=== PATIENT | male | born 1990 | race Caucasian/White ===

== ENCOUNTER 2021-04-17 02:46 | Observation (INO) ==
[2021-04-17] MEDS ORDERED: DICYCLOMINE HCL 10 MG CAP PO ONE (03:03)
[2021-04-17] MEDS ORDERED: SODIUM CHLORIDE 0.9% 1000ML 1,000 ML IV ONE (03:03)
--- NOTE | 2021-04-17 03:07 | Emergency Department Note ---
Impression & Plan Hemorrhagic colitis ED Provider Note Name: ELISEO CROUCH Age: 30 Sex: M Arrives Via: Walk-In Informant: Patient, ED Provider: Mohan Huertas MD Chief Complaint: Blood stool Impression: Hemorrhagic Colitis Medical Decision Makin yr old male with history of narcolepsy arrives with severe bloody diarrhea. Diffuse TTP entire abdomen, though not hypotensive/tachy. Labs with OK Hgb but WBC elevated. Given IV fludis, pain medications. Rash right arm at IV site noted post IV dye and Morphine, unclear which as etiology though resolved with IV benadryl. CT reveals diffuse colitis. Given degree colitis and persistent bloody diarrhea while here hospitalist consulted for further management. Triage/Nursing Notes reviewed by Me Differentials:Diverticulosis, AVM, coagulopathy, colitis, inflammatory bowel disease, malignancy, Moni-Haque tear, esophagitis, peptic ulcer disease, variceal bleed, gastritis, epistaxis, fissure, hemorrhoids, as well as other pathologies. Vital Signs: reviewed and remarkable for no significant abnormalities Interventions: saline lock, bentyl po, morphine iv, zofran iv, benadyrl iv, nss bolus Labs:Reviewed and remarkable for wbc elevation Imaging:[facility] Radiologist interpretation reviewed by me: pancolitis Consults:Dr Lata Hare Hospitalist Plan: Disposition:Hospitalization. Condition: Good History of Present Illness:30 yr old male arrives for evaluation of abdominal cramping. Patient notes about 12 hours of abdominal cramping. Shortly after it started developed diarrhea. Initially watery, but over the last few hours grossly bloody stool. No fevers, chills, vomiting, syncope, back pain, sob, cp, leg swelling, bruising, rashes, nor other symptoms. No history of similar. He was at the [facility] all last week. No falls, trauma, nor injury other than hit his head last week. No headache nor neck pain. No medications prior to arrival. Nothing makes pain better nor worse. Pain comes in waves. ROS: See above HPI for pertinent positives & negatives. A total of 10 systems reviewed and were otherwise negative. 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 EYES: No scleral icterus, unremarkable pupils. ENT: Mucous membranes moist, no nasal congestion. NECK: No masses appreciated, nomeningismus, trachea is midline. RESPIRATORY: No dyspnea. Clear to auscultation and equal bilaterally. No wheeze, no rhonchi. CARDIOVASCULAR: Regular rate and rhythm.No murmurs, rubs, gallops appreciated. GASTROINTESTINAL: Abdomen soft, non-tender, no peritonitis.Bowel sounds positive.No masses appreciated. BACK: No midline tenderness, no CVA tenderness EXTREMITIES: Normal motion all extremities, no cyanosis, no edema. RECTAL: No tears nor hemorrhoids appreciated NEUROLOGIC: Alert and oriented, no acute motor or sensory deficits, no focal weakness, cranial nerves grossly intact. SKIN: No rash, no jaundice, no diaphoresis. 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 Beliefs That Will Affect Care: None Current Living Situation: Spouse Other Information That Helps Us Care for You: No Feels Safe at Home: Yes Safety Concerns: Feels Safe At This Time Assistive Devices: None Allergies Allergies Allergy/AdvReac Type Severity Reaction Status Date / Time morphine Allergy Mild Hives Verified 04/17/21 07:09 Home Meds Home Medications Medication Instructions Recorded Confirmed armodafinil 200 mg tablet 200 mg PO DAILY 04/17/21 04/17/21 Results & Data (ED) Vital Signs Vital Signs - 24 hr 04/17/21 02:49 Temperature 36.9 C Temperature Source Temporal Artery Scan Pulse Rate 62 Respiratory Rate 20 Blood Pressure 118/68 Blood Pressure Mean 84 Blood Pressure Position Sitting Pulse Oximetry 98 Oxygen Delivery Method Room Air Sepsis Recent Fever Within 48 Hours No Sepsis New/Unexplained Change in Mental Status No Sepsis Action Taken by Nursing No Action Required Laboratory Data Result diagrams: 04/17/21 11:52 04/17/21 02:55 Lab Results 04/17/21 04/17/21 04/17/21 Range/Units 02:55 02:55 03:47 WBC 15.62 H (4.8-10.8) K/uL RBC 4.82 (4.7-6.1) M/uL Hgb 15.3 (14.0-18.0) g/dL Hct 42.8 (42-52) % MCV 88.8 (80-100) fL MCH 31.7 (25-34) pg MCHC 35.7 (32-36) g/dL RDW Std Deviation 39.7 (36.4-46.3) fL RDW Coeff of Colton 12.5 (11.5-14.5) % Plt Count 234 (130-400) K/uL MPV 9.2 (7.4-10.4) fL Immature Gran % (Auto) 0.2 % Neut % (Auto) 82.5 % Lymph % (Auto) 8.6 % [place] % (Auto) 8.5 % Eos % (Auto) 0.1 % Baso % (Auto) 0.1 % Neut # (Auto) 12.88 H (1.4-6.5) K/uL Lymph # (Auto) 1.35 (1.2-3.4) K/uL [place] # (Auto) 1.33 H (0.11-0.59) K/uL Eos # (Auto) 0.02 (0-0.5) K/uL Baso # (Auto) 0.01 (0-0.2) K/uL Immature Gran # (Auto) 0.03 H (0.00-0.02) K/uL Sodium 138 (136-145) mmol/L Potassium 3.6 (3.5-5.1) mmol/L Chloride 109 H (98-107) mmol/L Carbon Dioxide 24 (21-32) mmol/L Anion Gap 5.0 (3-11) BUN 12 (7-18) mg/dl Creatinine 1.12 (0.6-1.4) mg/dl Est Cr Clr Drug Dosing 100.5 ml/min Est GFR ( Amer) 102.3 ml/min Est GFR (Non-Af Amer) 88.3 ml/min BUN/Creatinine Ratio 10.9 (10-20) Glucose 127 H (70-99) mg/dl Estimat Average Glucose mg/dl Hemoglobin A1c (4.5-5.6) % Lactate (0.4-2.0) mmol/L Calcium 8.9 (8.5-10.1) mg/dl Magnesium (1.8-2.4) mg/dl Total Bilirubin 1.0 (0.2-1) mg/dl Direct Bilirubin 0.2 (0-0.2) mg/dl AST 13 L (15-37) U/L ALT 26 (12-78) U/L Alkaline Phosphatase 90 (45-117) U/L Total Protein 7.6 (6.4-8.2) gm/dl Albumin 4.0 (3.4-5.0) gm/dl Lipase 73 (73-393) U/L TSH (0.300-4.500) uIu/ml Free T4 (0.8-1.6) ng/dl Stl C. diff Tox B Gene Negative Cdiff Gene (Neg) COVID-19 Eval Order SARS-CoV-2 (PCR) (Negative) Blood Type Antibody Screen 04/17/21 04/17/21 04/17/21 Range/Units 03:53 03:53 06:20 WBC (4.8-10.8) K/uL RBC (4.7-6.1) M/uL Hgb (14.0-18.0) g/dL Hct (42-52) % MCV (80-100) fL MCH (25-34) pg MCHC (32-36) g/dL RDW Std Deviation (36.4-46.3) fL RDW Coeff of Colton (11.5-14.5) % Plt Count (130-400) K/uL MPV (7.4-10.4) fL Immature Gran % (Auto) % Neut % (Auto) % Lymph % (Auto) % [place] % (Auto) % Eos % (Auto) % Baso % (Auto) % Neut # (Auto) (1.4-6.5) K/uL Lymph # (Auto) (1.2-3.4) K/uL [place] # (Auto) (0.11-0.59) K/uL Eos # (Auto) (0-0.5) K/uL Baso # (Auto) (0-0.2) K/uL Immature Gran # (Auto) (0.00-0.02) K/uL Sodium (136-145) mmol/L Potassium (3.5-5.1) mmol/L Chloride (98-107) mmol/L Carbon Dioxide (21-32) mmol/L Anion Gap (3-11) BUN (7-18) mg/dl Creatinine (0.6-1.4) mg/dl Est Cr Clr Drug Dosing ml/min Est GFR ( Amer) ml/min Est GFR (Non-Af Amer) ml/min BUN/Creatinine Ratio (10-20) Glucose (70-99) mg/dl Estimat Average Glucose mg/dl Hemoglobin A1c (4.5-5.6) % Lactate 0.8 (0.4-2.0) mmol/L Calcium (8.5-10.1) mg/dl Magnesium (1.8-2.4) mg/dl Total Bilirubin (0.2-1) mg/dl Direct Bilirubin (0-0.2) mg/dl AST (15-37) U/L ALT (12-78) U/L Alkaline Phosphatase (45-117) U/L Total Protein (6.4-8.2) gm/dl Albumin (3.4-5.0) gm/dl Lipase (73-393) U/L TSH (0.300-4.500) uIu/ml Free T4 (0.8-1.6) ng/dl Stl C. diff Tox B Gene (Neg) COVID-19 Eval Order Covid19 at [facility] SARS-CoV-2 (PCR) NEGATIVE (Negative) Blood Type Antibody Screen 04/17/21 04/17/21 04/17/21 Range/Units 06:20 06:20 06:20 WBC (4.8-10.8) K/uL RBC (4.7-6.1) M/uL Hgb 14.6 (14.0-18.0) g/dL Hct 41.6 L (42-52) % MCV (80-100) fL MCH (25-34) pg MCHC (32-36) g/dL RDW Std Deviation (36.4-46.3) fL RDW Coeff of Colton (11.5-14.5) % Plt Count (130-400) K/uL MPV (7.4-10.4) fL Immature Gran % (Auto) % Neut % (Auto) % Lymph % (Auto) % [place] % (Auto) % Eos % (Auto) % Baso % (Auto) % Neut # (Auto) (1.4-6.5) K/uL Lymph # (Auto) (1.2-3.4) K/uL [place] # (Auto) (0.11-0.59) K/uL Eos # (Auto) (0-0.5) K/uL Baso # (Auto) (0-0.2) K/uL Immature Gran # (Auto) (0.00-0.02) K/uL Sodium (136-145) mmol/L Potassium (3.5-5.1) mmol/L Chloride (98-107) mmol/L Carbon Dioxide (21-32) mmol/L Anion Gap (3-11) BUN (7-18) mg/dl Creatinine (0.6-1.4) mg/dl Est Cr Clr Drug Dosing ml/min Est GFR ( Amer) ml/min Est GFR (Non-Af Amer) ml/min BUN/Creatinine Ratio (10-20) Glucose (70-99) mg/dl Estimat Average Glucose 100 mg/dl Hemoglobin A1c 5.1 (4.5-5.6) % Lactate (0.4-2.0) mmol/L Calcium (8.5-10.1) mg/dl Magnesium (1.8-2.4) mg/dl Total Bilirubin (0.2-1) mg/dl Direct Bilirubin (0-0.2) mg/dl AST (15-37) U/L ALT (12-78) U/L Alkaline Phosphatase (45-117) U/L Total Protein (6.4-8.2) gm/dl Albumin (3.4-5.0) gm/dl Lipase (73-393) U/L TSH (0.300-4.500) uIu/ml Free T4 (0.8-1.6) ng/dl Stl C. diff Tox B Gene (Neg) COVID-19 Eval Order SARS-CoV-2 (PCR) (Negative) Blood Type O Negative Antibody Screen NEGATIVE 04/17/21 04/17/21 Range/Units 06:20 06:20 WBC (4.8-10.8) K/uL RBC (4.7-6.1) M/uL Hgb (14.0-18.0) g/dL Hct (42-52) % MCV (80-100) fL MCH (25-34) pg MCHC (32-36) g/dL RDW Std Deviation (36.4-46.3) fL RDW Coeff of Colton (11.5-14.5) % Plt Count (130-400) K/uL MPV (7.4-10.4) fL Immature Gran % (Auto) % Neut % (Auto) % Lymph % (Auto) % [place] % (Auto) % Eos % (Auto) % Baso % (Auto) % Neut # (Auto) (1.4-6.5) K/uL Lymph # (Auto) (1.2-3.4) K/uL [place] # (Auto) (0.11-0.59) K/uL Eos # (Auto) (0-0.5) K/uL Baso # (Auto) (0-0.2) K/uL Immature Gran # (Auto) (0.00-0.02) K/uL Sodium (136-145) mmol/L Potassium (3.5-5.1) mmol/L Chloride (98-107) mmol/L Carbon Dioxide (21-32) mmol/L Anion Gap (3-11) BUN (7-18) mg/dl Creatinine (0.6-1.4) mg/dl Est Cr Clr Drug Dosing ml/min Est GFR ( Amer) ml/min Est GFR (Non-Af Amer) ml/min BUN/Creatinine Ratio (10-20) Glucose (70-99) mg/dl Estimat Average Glucose mg/dl Hemoglobin A1c (4.5-5.6) % Lactate (0.4-2.0) mmol/L Calcium (8.5-10.1) mg/dl Magnesium 2.0 (1.8-2.4) mg/dl Total Bilirubin (0.2-1) mg/dl Direct Bilirubin (0-0.2) mg/dl AST (15-37) U/L ALT (12-78) U/L Alkaline Phosphatase (45-117) U/L Total Protein (6.4-8.2) gm/dl Albumin (3.4-5.0) gm/dl Lipase (73-393) U/L TSH 0.281 L (0.300-4.500) uIu/ml Free T4 1.18 (0.8-1.6) ng/dl Stl C. diff Tox B Gene (Neg) COVID-19 Eval Order SARS-CoV-2 (PCR) (Negative) Blood Type Antibody Screen Administered Medications Acetaminophen (Acetaminophen 325 Mg Tab) 650 mg PO Q4H PRN PRN Reason: Pain or Fever Stop: 05/17/21 08:49 Last Admin: 04/17/21 19:39 Dose: 650 mg Documented by: [id number] Admin: 04/17/21 15:35 Dose: 650 mg Documented by: [id number] Metronidazole (Flagyl) 500 mg in 100 mls @ 100 mls/hr IV Q8H MAREK Stop: 04/27/21 13:59 Last Admin: 04/18/21 05:57 Dose: 100 mls/hr Documented by: [id number] Infusion: 04/18/21 00:21 Dose: 0 mls/hr Documented by: [id number] Admin: 04/17/21 22:48 Dose: 100 mls/hr Documented by: [id number] Infusion: 04/17/21 14:39 Dose: 0 mls/hr Documented by: [id number] Admin: 04/17/21 13:38 Dose: 100 mls/hr Documented by: [id number] Ciprofloxacin (Cipro / D5w) 400 mg in 200 mls @ 100 mls/hr IV Q12 MAREK; Protocol Stop: 04/27/21 20:59 Last Infusion: 04/17/21 22:50 Dose: 0 mls/hr Documented by: [id number] Admin: 04/17/21 20:48 Dose: 100 mls/hr Documented by: [id number] Miscellaneous (Armodafinil 200 Mg Tablet~Order Awaiting Action) 1 ea N/A QS MAREK Stop: 05/17/21 15:59 Last Admin: 04/18/21 00:22 Dose: Not Given Documented by: [id number] Admin: 04/17/21 15:28 Dose: Not Given Documented by: [id number] Discontinued Medications Acetaminophen (Acetaminophen 325 Mg Tab) 650 mg PO NOW STA Stop: 04/17/21 05:46 Last Admin: 04/17/21 06:08 Dose: 650 mg Documented by: [id number] Dicyclomine HCl (Dicyclomine Hcl 10 Mg Cap) 20 mg PO NOW ONE Stop: 04/17/21 03:04 Last Admin: 04/17/21 03:31 Dose: 20 mg Documented by: [id number] Diphenhydramine HCl (Diphenhydramine 50 Mg/Ml Vial) 50 mg IV NOW STA Stop: 04/17/21 04:25 Last Admin: 04/17/21 04:28 Dose: 50 mg Documented by: [id number] Sodium Chloride (Nss 1000ml) 1,000 mls @ 999 mls/hr IV .Q1H1M ONE Stop: 04/17/21 04:03 Last Infusion: 04/17/21 04:36 Dose: 0 mls/hr Documented by: [id number] Admin: 04/17/21 03:32 Dose: 999 mls/hr Documented by: [id number] Metronidazole (Flagyl) 500 mg in 100 mls @ 100 mls/hr IV NOW STA Stop: 04/17/21 06:40 Last Infusion: 04/17/21 07:29 Dose: 0 mls/hr Documented by: [id number] Admin: 04/17/21 06:21 Dose: 100 mls/hr Documented by: [id number] Ciprofloxacin (Cipro / D5w) 400 mg in 200 mls @ 100 mls/hr IV NOW STA; Protocol Stop: 04/17/21 07:41 Last Infusion: 04/17/21 10:18 Dose: 0 mls/hr Documented by: [id number] Admin: 04/17/21 08:15 Dose: 100 mls/hr Documented by: [id number] Potassium Chloride 40 meq/ (Sodium Chloride) 1,020 mls @ 100 mls/hr IV .[id number] STA Stop: 04/17/21 16:36 Last Infusion: 04/17/21 17:44 Dose: 0 mls/hr Documented by: [id number] Admin: 04/17/21 06:33 Dose: 100 mls/hr Documented by: [id number] Ioversol (Optiray 320 100ml) 95 ml IV ONCE ONE Stop: 04/17/21 03:55 Last Admin: 04/17/21 03:54 Dose: 95 ml Documented by: [id number] Morphine Sulfate (Morphine Sulfate 10 Mg/Ml Carp/Vial) 6 mg IV NOW STA Stop: 04/17/21 03:33 Last Admin: 04/17/21 03:58 Dose: 6 mg Documented by: [id number] Ondansetron HCl (Ondansetron Inj 2 Mg/Ml 2 Ml Vial) 4 mg IV NOW STA Stop: 04/17/21 03:33 Last Admin: 04/17/21 03:58 Dose: 4 mg Documented by: [id number] Discharge Plan Visit Data Chief Complaint: Abdominal Pain Stated Complaint: STABBING ABD PAIN, BLOOD IN STOOL ED Provider: Mohan Huertas Discharge Problem: Hemorrhagic colitis Patient Disposition: Admitted As Inpatient Discharge Instructions Interventions: ED Discharge Assessment Last Done: 04/17/21 08:26
[2021-04-17 03:09] LABS: Basophils # (auto) 0.01 K/uL (0-0.2); Basophils % (auto) 0.1 %; Eosinophils # (auto) 0.02 K/uL (0-0.5); Eosinophils % (auto) 0.1 %; Hematocrit (blood only) 42.8 % (42-52); Hemoglobin 15.3 g/dL (14.0-18.0); Immature Granulocytes # (auto) 0.03 K/uL (0.00-0.02); Immature Granulocytes % (auto) 0.2 %; Lymphocytes # (auto) 1.35 K/uL (1.2-3.4); Lymphocytes % (auto) 8.6 %; Mean Corpuscular Hemoglobin 31.7 pg (25-34); Mean Corpuscular Hgb Conc 35.7 g/dL (32-36); Mean Corpuscular Volume 88.8 fL (80-100); Mean Platelet Volume 9.2 fL (7.4-10.4); Monocytes # (auto) 1.33 K/uL (0.11-0.59); Monocytes % (auto) 8.5 %; Neutrophils # (auto) 12.88 K/uL (1.4-6.5); Neutrophils % (auto) 82.5 %; Platelet Count 234 K/uL (130-400); RDW Coefficient of Variation 12.5 % (11.5-14.5); RDW Standard Deviation 39.7 fL (36.4-46.3); Red Blood Count 4.82 M/uL (4.7-6.1); White Blood Count 15.62 K/uL (4.8-10.8)
[2021-04-17 03:24] LABS: BUN Creatinine Ratio 10.9 (10-20); Bilirubin Direct 0.2 mg/dl (0-0.2); Calcium 8.9 mg/dl (8.5-10.1); Creatinine Clr Calc Pharmacy 100.5 ml/min; Est GFR (African American) 102.3 ml/min; Est GFR (Non-African American) 88.3 ml/min; Potassium 3.6 mmol/L (3.5-5.1)
[2021-04-17 03:26] LABS: Total Protein 7.6 gm/dl (6.4-8.2)
[2021-04-17] MEDS ORDERED: ONDANSETRON INJ 2 MG/ML 2 ML VIAL IV STA (03:32)
[2021-04-17] MEDS ORDERED: MoRPHine SULFATE 10 MG/ML CARP/VIAL IV STA (03:32)
[2021-04-17] MEDS ORDERED: OPTIRAY 320 100ml IV ONE (03:54)
[2021-04-17] MEDS ORDERED: diphenhydrAMINE 50 MG/ML VIAL IV STA (04:24)
[2021-04-17] MEDS ORDERED: metroNIDAZOLE 500 MG/100 ML BAG IV STA (05:41)
[2021-04-17] MEDS ORDERED: CIPROFLOXACIN / D5W 400 MG/200 ML BAG IV STA (05:42)
[2021-04-17] MEDS ORDERED: ACETAMINOPHEN 325 MG TAB PO STA (05:45)
--- NOTE | 2021-04-17 06:23 | History & Physical Report ---
Date of Service April 17, 2021 Assessment & Plan (1) Hemorrhagic colitis: Plan: Possible foodborne illness Possible sepsis Possible hemodynamic instability given BP on the lower side. Narcolepsy stable on medication Hyperglycemia rule out DM Medical telemetry CS, check lactic acid Cipro Flagyl GI consult Re: Hemorrhagic colitis Serial H&H, transfuse PRBC if hemoglobin less than 7 and or for symptomatic anemia Check hemoglobin A1c DVT prophylaxis with SCDs Re: GI bleed Full code Patient's requesting updates from providers. Ms. Paola Jeffery, contact #[phone]. Text document was generated using [employer] voice recognition software. It may contain grammatical or spelling errors. Kindly contact undersigned for clarification of any documentation item in question. History of Present Illness Chief Complaint: Abdominal pain, bloody diarrhea Primary Care Provider: Payam Nevarez [facility] Practice History obtained from patient, family, and records. Medical history significant for narcolepsy. Patient has been at the [employer] this week eating a bunch of stuff. Yesterday around noontime, patient noted abdominal cramping followed by watery diarrhea followed by grossly bloody stool. Multiple bowel movements. No fever, chills, vomiting, chest pain, shortness of breath. No recent antibiotics, no known sick contacts. No prior episodes. No unusual weight loss the last few months. Patient brought to the ER by for evaluation. Medical History as above EGD 2008 was normal. Surgical History : None Family History : DM, heart disease ; no IBD, no colon cancer Personal/Social history : Non-smoker, occasional EtOH intake, metallurgical work Allergies Allergy/AdvReac Type Severity Reaction Status Date / Time No Known Allergies AdvReac Unknown Unverified 05/05/05 20:30 Home Medications Medication Instructions Recorded Confirmed Type armodafinil 200 mg tablet 200 mg PO DAILY 04/17/21 04/17/21 History Past Med/Surg History Social History Smoking Status: Never smoker Preferred Language: Greek Feels Safe at Home: Yes Review of Systems Review of Systems: As per HPI, all 10 systems reviewed, all other ROS negative Physical Exam Physical Exam: GENERAL: Comfortable, pleasant, no respiratory distress SKIN: Normal color, warm HEENT: [place] palpebral conjunctivae, no ptosis, dry buccal mucosa NECK : Supple, no tenderness CHEST : CTA, no tenderness HEART : Bradycardic, no obvious murmurs ABDOMEN: Some distention, minimal hypogastric tenderness EXTREMITIES : No LE swelling/tenderness, no other conspicuous deformities noted NEUROLOGIC : Coherent, no facial asymmetry, no other gross focality Results & Data Results & Data ([facility]) Vital Signs (Past 12 Hours) Vital Signs Temp Pulse Pulse Resp BP BP Pulse Ox 04/17/21 05:00 59 L 24 122/52 L 96 04/17/21 04:30 74 21 103/58 L 97 04/17/21 04:00 82 15 132/72 99 04/17/21 03:58 66 17 147/57 H 99 04/17/21 03:06 37.6 C H 65 18 143/79 H 97 04/17/21 03:05 143/79 H 04/17/21 02:49 36.9 C 62 20 118/68 98 Laboratory Results Laboratory Results WBC 15.62 K/uL (4.8-10.8) H 04/17/21 02:55 RBC 4.82 M/uL (4.7-6.1) 04/17/21 02:55 Hgb 15.3 g/dL (14.0-18.0) 04/17/21 02:55 Hct 42.8 % (42-52) 04/17/21 02:55 MCV 88.8 fL (80-100) 04/17/21 02:55 MCH 31.7 pg (25-34) 04/17/21 02:55 MCHC 35.7 g/dL (32-36) 04/17/21 02:55 RDW Std Deviation 39.7 fL (36.4-46.3) 04/17/21 02:55 RDW Coeff of Colton 12.5 % (11.5-14.5) 04/17/21 02:55 Plt Count 234 K/uL (130-400) 04/17/21 02:55 MPV 9.2 fL (7.4-10.4) 04/17/21 02:55 Immature Gran % (Auto) 0.2 % 04/17/21 02:55 Neut % (Auto) 82.5 % 04/17/21 02:55 Lymph % (Auto) 8.6 % 04/17/21 02:55 [place] % (Auto) 8.5 % 04/17/21 02:55 Eos % (Auto) 0.1 % 04/17/21 02:55 Baso % (Auto) 0.1 % 04/17/21 02:55 Neut # (Auto) 12.88 K/uL (1.4-6.5) H 04/17/21 02:55 Lymph # (Auto) 1.35 K/uL (1.2-3.4) 04/17/21 02:55 [place] # (Auto) 1.33 K/uL (0.11-0.59) H 04/17/21 02:55 Eos # (Auto) 0.02 K/uL (0-0.5) 04/17/21 02:55 Baso # (Auto) 0.01 K/uL (0-0.2) 04/17/21 02:55 Immature Gran # (Auto) 0.03 K/uL (0.00-0.02) H 04/17/21 02:55 Sodium 138 mmol/L (136-145) 04/17/21 02:55 Potassium 3.6 mmol/L (3.5-5.1) 04/17/21 02:55 Chloride 109 mmol/L (98-107) H 04/17/21 02:55 Carbon Dioxide 24 mmol/L (21-32) 04/17/21 02:55 Anion Gap 5.0 (3-11) 04/17/21 02:55 BUN 12 mg/dl (7-18) 04/17/21 02:55 Creatinine 1.12 mg/dl (0.6-1.4) 04/17/21 02:55 Est Cr Clr Drug Dosing 100.5 ml/min 04/17/21 02:55 Est GFR ( Amer) 102.3 ml/min 04/17/21 02:55 Est GFR (Non-Af Amer) 88.3 ml/min 04/17/21 02:55 BUN/Creatinine Ratio 10.9 (10-20) 04/17/21 02:55 Glucose 127 mg/dl (70-99) H 04/17/21 02:55 Calcium 8.9 mg/dl (8.5-10.1) 04/17/21 02:55 Total Bilirubin 1.0 mg/dl (0.2-1) 04/17/21 02:55 Direct Bilirubin 0.2 mg/dl (0-0.2) 04/17/21 02:55 AST 13 U/L (15-37) L 04/17/21 02:55 ALT 26 U/L (12-78) 04/17/21 02:55 Alkaline Phosphatase 90 U/L (45-117) 04/17/21 02:55 Total Protein 7.6 gm/dl (6.4-8.2) 04/17/21 02:55 Albumin 4.0 gm/dl (3.4-5.0) 04/17/21 02:55 Lipase 73 U/L (73-393) 04/17/21 02:55 Stl C. diff Tox B Gene Negative Cdiff Gene (Neg) 04/17/21 03:47 COVID-19 Eval Order Covid19 at [facility] 04/17/21 03:53 SARS-CoV-2 (PCR) NEGATIVE (Negative) 04/17/21 03:[address] abdomen pelvis initial read: Bowel wall thickening and surrounding inflammation involving the entire colon consistent with colitis greatest involving the cecumand right colon. No perforation or abscess is seen. There is a small amount of free fluid in the paracolic gutter. The liver, gallbladder, pancreas, spleen, adrenal glands, and kidneys appear within normal limits. The urinarybladder is decompressed. Skeletal structures appear unremarkable
[2021-04-17] MEDS ORDERED: POTASSIUM CHLORIDE 40 MEQ in SODIUM CHLORIDE 0.9% 1000ML 1,000 ML IV STA (06:25)
[2021-04-17 06:30] LABS: Hematocrit (blood only) 41.6 % (42-52); Hemoglobin 14.6 g/dL (14.0-18.0)
[2021-04-17 07:13] LABS: Estimated Average Glucose 100 mg/dl; Hemoglobin A1C 5.1 % (4.5-5.6)
[2021-04-17 07:29] LABS: Thyroid Stimulating Hormone 0.281 uIu/ml (0.300-4.500)
[2021-04-17 07:43] LABS: T4 Free Thyroxine 1.18 ng/dl (0.8-1.6)
--- NOTE | 2021-04-17 08:13 | CT Scan Report ---
ABDOMEN AND PELVIS CT WITH IV CONTRAST CT DOSE: 407.52 mGy.cm HISTORY: Diffuse abdominal pain, elevated WBC, fever TECHNIQUE: Multiaxial CT images of the abdomen and pelvis were performed following the use of intrave nous contrast. A dose lowering technique was utilized adhering to the principles of ALARA. COMPARISON STUDY: None. FINDINGS: Groundglass densities within the lungs posteriorly favor mild dependent change. No pneumope ritoneum. No pneumatosis. No fractures within the visualized osseous structures. The liver, gallbladd er, pancreas, spleen, adrenal glands, and kidneys are unremarkable. No hydronephrosis. No retroperito alex lymphadenopathy. Normal caliber abdominal aorta. The main portal vein is patent. No evidence for bowel obstruction. Normal appendix. The bladder is decompressed. A few colonic diverticula. No evide nce for acute diverticulitis. There is trace fluid within the abdomen and pelvis. [id number] gabino wel wall thickening involving the majority of the colon most pronounced within the proximal colon. Th ere is associated pericolonic inflammatory change/edema. Findings are consistent with a pancolitis. A few prominent ileocolic lymph nodes which are likely reactive. IMPRESSION: 1. Above findings consistent with a nonspecific pancolitis likely secondary to an infectious or infla mmatory process. No perforation or abscess identified. 2. Small amount of fluid within the abdomen and pelvis which is likely reactive. 3. Normal appendix. ACT 112: Negative or not required by law. Electronically signed by: Brooks Christianson M.D. 04/17/2021 8:12 AM
[2021-04-17] MEDS ORDERED: traMADol HCL 50 MG TABLET PO PRN (08:50)
[2021-04-17] MEDS ORDERED: PROMETHAZINE HCL 12.5 MG in SODIUM CHLORIDE 0.9% 50 ML IV PRN (08:50)
[2021-04-17] MEDS ORDERED: KETOROLAC TROMETHAMINE 15 MG/ML VIAL IV PRN (08:50)
[2021-04-17] MEDS ORDERED: ARMODAFINIL 200 MG PO SCH (09:00)
[2021-04-17] MEDS ORDERED: CIPROFLOXACIN CONSULT ACTIVE PRN (09:00)
[2021-04-17 12:06] LABS: Hematocrit (blood only) 40.8 % (42-52); Hemoglobin 14.2 g/dL (14.0-18.0)
[2021-04-17] MEDS: metroNIDAZOLE 500 MG/100 ML BAG IV SCH ×2 (13:38→22:48)
[2021-04-17] MEDS: ACETAMINOPHEN 325 MG TAB PO PRN ×2 (15:35→19:39)
--- NOTE | 2021-04-17 15:44 | Consultation Report ---
DATE OF CONSULT: 04/17/2021. REFERRED BY: Naresh Guido MD. HISTORY OF PRESENT ILLNESS: I was asked by Dr. Guido to consult on this gentleman for evaluation of diarrhea and abdominal pain. The patient is a 30-year-old who was at a local fair, eating typical f air food and on Monday developed severe abdominal cramping and watery diarrhea, which turned bloody. The crampy abdominal pain was diffuse, colicky and relieved with bowel movements. He denied any fev ers, chills, nausea, vomiting. He has never had this before. No one else in his democrat became sick. Prior to this, his weight was stable. I reviewed his medical records and his past medical history. PAST MEDICAL HISTORY: Significant for GERD symptoms. PAST SURGICAL HISTORY: He denies any past surgical history. FAMILY HISTORY: He has no family history of gastrointestinal disease. SOCIAL HISTORY: Not significant for smoking and he only uses alcohol rarely on a social platform. MEDICATIONS: Outpatient medications include modafinil. ALLERGIES: He denies any drug allergies. REVIEW OF SYSTEMS: As above, otherwise, he denies any change in vision or hearing. He denies any cook ir loss. He has no shortness of breath or productive cough. He denies any palpitations. He has had no rashes or icterus. He denies any easy bruising. He has had no heat or cold intolerance. He has had no polyuria or dysuria. He has had no joint swelling. He denies any change in mood. PHYSICAL EXAMINATION: GENERAL: Reveals a pleasant gentleman lying in bed, occasionally having some cramping in his abdomen . VITAL SIGNS: His blood pressure is 112/57, pulse is 55, temperature is 36.7. SKIN: Anicteric. EYES: Show anicteric sclerae. MOUTH: Clear of lesions. NECK: Supple with no adenopathy. CHEST: Clear. HEART: Regular rate and rhythm. ABDOMEN: Soft with hyperactive bowel sounds. He has some tenderness to deep palpation, but no rebou nd. There are no evidence of masses. EXTREMITIES: Warm with good distal pulses and no edema. NEUROLOGICALLY: He is grossly intact and alert and oriented x3. LABORATORY DATA: Show a white blood cell count of 15.6 with a hemoglobin of 14.2 and a platelet coun t of 234,000. IMAGING: His abdomen with CT scan shows evidence of diffuse pancolon thickening, possibly representi ng a pancolitis, small amount of fluid within the abdomen and pelvis felt to be likely reactive with some prominent ileocolic lymph nodes. IMPRESSION: A 30-year-old gentleman with infectious colitis, most likely from a Shiga toxin producin g infectious agent. I recommend IV hydration. Continue antibiotics as you are doing since he has si gns of systematic inflammation from this colitis and follow up stool studies. No indication for colo noscopy at this point. Thank you for this consult. Job ID: [id number]
--- NOTE | 2021-04-17 16:16 | Hospitalist Progress Note ---
Date of Service April 17, 2021 Assessment & Plan (1) Hemorrhagic colitis: Plan: Mostly infectious colitis from possible shiga toxin producing infectious agent CT abd/pelvis consistent with a nonspecific pancolitis likely secondary to an infectious or inflammatory process. No perforation or abscess identified. Small amount of fluid within the abdomen and pelvis which is likely reactive. Gastro on board recommended continue IVf fluid and IV Flagyl and cipro Continue clear liquid diet No indication for colonoscopy at this point. Continue monitor H/H Pain control Continue monitor closely Narcolepsy stable on medication Hyperglycemia Hba1c 5.1 Continue monitor DVT prophylaxis with SCDs Re: GI bleed Full code Patient's requesting updates from providers. Ms. Paola Jeffery, contact #[phone]. Admission and Anticipated Discharge Date Admission Date: April 17, 2021 Subjective Pt was seen and examined for follow up abdominal pain associated with bloody diarrhea Lying in bed with no acute distress Pt said he continues to have bloody diarrhea he said that he had intermittent abdominal pain Denies any nausea, vomiting, palpitation, dizziness and fever Physical Exam Physical Exam: General- No acute distress Head- atraumatic Eyes- PERRL, EOMI, ENT- oropharynx clear Neck- supple, no JVD Lungs- clear to auscultation Heart- regular rhythm; no murmur Abdomen- normal bowel sounds, soft, nontender Extremities- no calf tenderness Neuro- alert, oriented x 3; PERRL, EOMI; no facial palsy; no dysarthria Skin- warm & dry Results & Data Results & Data ([facility]) Vital Signs (Past 12 Hours) Vital Signs Temp Pulse Pulse Resp BP BP Pulse Ox 04/17/21 15:58 37.9 C H 89 18 134/75 95 04/17/21 08:55 36.7 C 55 L 16 112/57 L 97 04/17/21 08:00 66 14 121/66 97 04/17/21 07:30 52 L 14 103/57 L 96 04/17/21 07:00 50 L 15 122/55 L 97 04/17/21 06:30 55 L 15 112/59 L 96 04/17/21 06:26 37.1 C 54 L 55 L 14 109/58 L 109/58 L 97 04/17/21 06:00 59 L 20 114/53 L 96 04/17/21 05:30 60 16 108/54 L 94 04/17/21 05:00 59 L 24 122/52 L 96 04/17/21 04:30 74 21 103/58 L 97
[2021-04-17] MEDS: CIPROFLOXACIN / D5W 400 MG/200 ML BAG IV SCH (20:48)
[2021-04-18] MEDS: metroNIDAZOLE 500 MG/100 ML BAG IV SCH ×3 (05:57→22:56)
[2021-04-18 06:57] LABS: Basophils # (auto) 0.02 K/uL (0-0.2); Basophils % (auto) 0.1 %; Eosinophils # (auto) 0.04 K/uL (0-0.5); Eosinophils % (auto) 0.2 %; Hematocrit (blood only) 42.2 % (42-52); Hemoglobin 14.9 g/dL (14.0-18.0); Immature Granulocytes # (auto) 0.02 K/uL (0.00-0.02); Immature Granulocytes % (auto) 0.1 %; Lymphocytes # (auto) 1.41 K/uL (1.2-3.4); Lymphocytes % (auto) 8.5 %; Mean Corpuscular Hemoglobin 31.6 pg (25-34); Mean Corpuscular Hgb Conc 35.3 g/dL (32-36); Mean Corpuscular Volume 89.4 fL (80-100); Mean Platelet Volume 9.2 fL (7.4-10.4); Monocytes % (auto) 7.8 %; Neutrophils # (auto) 13.81 K/uL (1.4-6.5); Neutrophils % (auto) 83.3 %; Platelet Count 226 K/uL (130-400); RDW Coefficient of Variation 12.6 % (11.5-14.5); RDW Standard Deviation 41.1 fL (36.4-46.3); Red Blood Count 4.72 M/uL (4.7-6.1)
[2021-04-18] MEDS: CIPROFLOXACIN / D5W 400 MG/200 ML BAG IV SCH ×2 (07:07→21:36)
[2021-04-18 07:26] LABS: BUN Creatinine Ratio 9.2 (10-20); Calcium 8.5 mg/dl (8.5-10.1); Creatinine Clr Calc Pharmacy 148.8 ml/min; Est GFR (African American) 141.4 ml/min; Potassium 3.5 mmol/L (3.5-5.1)
[2021-04-18] MEDS: ACETAMINOPHEN 325 MG TAB PO PRN (09:53)
--- NOTE | 2021-04-18 10:34 | Hospitalist Progress Note ---
Date of Service April 18, 2021 Assessment & Plan (1) Hemorrhagic colitis: Plan: Mostly infectious colitis from possible shiga toxin producing infectious agent CT abd/pelvis consistent with a nonspecific pancolitis likely secondary to an infectious or inflammatory process. No perforation or abscess identified. Small amount of fluid within the abdomen and pelvis which is likely reactive. Gastro on board recommended continue IVf fluid and IV Flagyl and cipro Stool for C. difficile negative Stool culture and stool for E. coli Shiga toxin pending Continue clear liquid diet, will consider to advance to full liquid diet if symptoms continue to improve No indication for colonoscopy at this point. Hemoglobin stable Continue pain control Continue monitor closely Leukocytosis Possible related to colitis Blood culture no growth Continue IV Cipro and Flagyl Follow-up CBC in a.m. Abnormal TSH Possible related to acute illness Free T4 normal Will need to repeat TSH in 4 weeks Narcolepsy stable on medication Hyperglycemia Hba1c 5.1 Continue monitor DVT prophylaxis with SCDs Re: GI bleed Full code Patient's requesting updates from providers. Ms. Paola Jeffery, contact #[phone]. Admission and Anticipated Discharge Date Admission Date: April 17, 2021 Subjective Pt was seen and examined for follow up abdominal pain associated with bloody diarrhea Lying in bed with no acute distress Patient said the abdominal pain slightly improved as well as the bloody diarrhea He said so far he had about 4 episodes of bloody diarrhea since midnight Denies any nausea, vomiting, palpitation, dizziness and fever Review of Systems Review of Systems: All systems reviewed & are unremarkable except as noted in Subjective Physical Exam Physical Exam: General- No acute distress Head- atraumatic Eyes- PERRL, EOMI, ENT- oropharynx clear Neck- supple, no JVD Lungs- clear to auscultation Heart- regular rhythm; no murmur Abdomen- normal bowel sounds, soft, nontender Extremities- no calf tenderness Neuro- alert, oriented x 3; PERRL, EOMI; no facial palsy; no dysarthria Skin- warm & dry Results & Data Results & Data ([facility]) Vital Signs (Past 12 Hours) Vital Signs Temp Pulse Resp BP BP Pulse Ox 04/18/21 07:01 37.3 C 71 20 136/78 95 04/18/21 03:00 37.5 C 73 20 124/65 96 04/17/21 22:58 37 C 74 18 133/77 94
[2021-04-18 12:11] LABS: Appearance Urine Clear (Clear); Bilirubin Urine Negative (Negative); Blood Urine Negative (Negative); Color Urine Yellow; Glucose Urine UA Negative (Negative); Ketones Urine Negative (Negative); Leukocyte Esterase Urine Negative (Negative); Nitrite Urine Negative (Negative); Protein Urine Negative (Negative); Specific Gravity Urine 1.005 (1.000-1.030); Urobilinogen Urine Negative (Negative); pH Urine 6.5 (4.5-7.5)
--- NOTE | 2021-04-18 14:47 | Progress Notes ---
DATE OF NOTE: 04/18/2021 SUBJECTIVE: The patient is feeling better today. He has less abdominal cramping and has had less di arrhea. He still does not feel hungry, however. He still has some occasional abdominal discomfort. OBJECTIVE: VITAL SIGNS: His most recent vital signs show a blood pressure 124/75, pulse is 65, temperature is 3 6.8. HEENT: Skin is anicteric. Eyes show anicteric sclerae. Mouth is clear of lesions. CHEST: Clear. ABDOMEN: Soft with good bowel sounds and no rebound tenderness. EXTREMITIES: Warm with good distal pulses. LABORATORY DATA: Preliminary stool shows E. coli Shiga toxin 1 positivity. ASSESSMENT: A 30-year-old gentleman with infectious colitis, improving. From a GI perspective, the patient can be discharged tomorrow. He should complete his course of antibiotics. He should avoid d airy products and fruits at this point. He also should avoid green leafy vegetables. I discussed wi th him meat, chicken, and rice and fish would be a better diet for him for the first few days and he can liberalize as he feels fit. Discussed with at bedside as well. Job ID: [id number]
[2021-04-19] MEDS: ACETAMINOPHEN 325 MG TAB PO PRN ×2 (03:47→10:30)
[2021-04-19] MEDS: metroNIDAZOLE 500 MG/100 ML BAG IV SCH ×3 (06:05→21:02)
[2021-04-19 08:24] LABS: Basophils # (auto) 0.03 K/uL (0-0.2); Basophils % (auto) 0.2 %; Eosinophils # (auto) 0.09 K/uL (0-0.5); Eosinophils % (auto) 0.5 %; Hematocrit (blood only) 42.2 % (42-52); Hemoglobin 14.8 g/dL (14.0-18.0); Immature Granulocytes # (auto) 0.06 K/uL (0.00-0.02); Immature Granulocytes % (auto) 0.3 %; Lymphocytes # (auto) 1.95 K/uL (1.2-3.4); Lymphocytes % (auto) 10.9 %; Mean Corpuscular Hemoglobin 31.2 pg (25-34); Mean Corpuscular Hgb Conc 35.1 g/dL (32-36); Mean Corpuscular Volume 88.8 fL (80-100); Mean Platelet Volume 9.5 fL (7.4-10.4); Monocytes # (auto) 1.61 K/uL (0.11-0.59); Neutrophils # (auto) 14.13 K/uL (1.4-6.5); Neutrophils % (auto) 79.1 %; Platelet Count 231 K/uL (130-400); RDW Coefficient of Variation 12.4 % (11.5-14.5); RDW Standard Deviation 40.5 fL (36.4-46.3); Red Blood Count 4.75 M/uL (4.7-6.1); White Blood Count 17.87 K/uL (4.8-10.8)
[2021-04-19 08:50] LABS: BUN Creatinine Ratio 9.7 (10-20); Calcium 8.9 mg/dl (8.5-10.1); Creatinine Clr Calc Pharmacy 139.9 ml/min; Est GFR (African American) 137.8 ml/min; Est GFR (Non-African American) 118.9 ml/min; Potassium 3.4 mmol/L (3.5-5.1)
[2021-04-19] MEDS: CIPROFLOXACIN / D5W 400 MG/200 ML BAG IV SCH ×2 (08:59→20:54)
[2021-04-19] MEDS ORDERED: POTASSIUM CHLORIDE CRTAB 20 MEQ TABCR PO STA (09:41)
--- NOTE | 2021-04-19 14:50 | Hospitalist Progress Note ---
Date of Service April 19, 2021 Assessment & Plan (1) Hemorrhagic colitis: Plan: Mostly infectious colitis from possible shiga toxin producing infectious agent CT abd/pelvis consistent with a nonspecific pancolitis likely secondary to an infectious or inflammatory process. No perforation or abscess identified. Small amount of fluid within the abdomen and pelvis which is likely reactive. Gastro on board recommended continue IVf fluid and IV Flagyl and cipro Stool for C. difficile negative Stool positive for E. coli Shiga toxin No indication for colonoscopy at this point. gastro on board and recommended to avoid dairy products and fruits at this point. He also should avoid green leafy vegetables. meat, chicken, and rice and fish would be a better diet for him for the first few days and he can liberalize as he feels fit as per GI GI recommended to complete the course of the abx, but when i discussed again with GI they recommended supportive therapy and not to discharge on abx Tolerated diet and advanced as tolerated Hemoglobin stable Continue pain control Continue monitor closely Leukocytosis Possible related to colitis WBC 17K Blood culture no growth Currently on IV Cipro and Flagyl Abnormal TSH Possible related to acute illness Free T4 normal Will need to repeat TSH in 4 weeks Narcolepsy stable on medication Hyperglycemia Hba1c 5.1 Continue monitor DVT prophylaxis with SCDs Re: GI bleed Full code Patient's requesting updates from providers. Ms. Paola Jeffery, contact #[phone]. Admission and Anticipated Discharge Date Admission Date: April 17, 2021 Subjective Pt was seen and examined for follow up abdominal pain associated with bloody diarrhea Lying in bed with no acute distress Pt said that he is feeling much better today He said that he had 3 episodes of diarrhea this morning He said that he is not having any abdominal discomfort Denies any nausea, vomiting, palpitation, dizziness and fever Physical Exam Physical Exam: General- No acute distress Head- atraumatic Eyes- PERRL, EOMI, ENT- oropharynx clear Neck- supple, no JVD Lungs- clear to auscultation Heart- regular rhythm; no murmur Abdomen- normal bowel sounds, soft, nontender Extremities- no calf tenderness Neuro- alert, oriented x 3; PERRL, EOMI; no facial palsy; no dysarthria Skin- warm & dry Results & Data Results & Data ([facility]) Vital Signs (Past 12 Hours) Vital Signs Temp Pulse Pulse Resp BP Pulse Ox 04/19/21 11:37 37.2 C 74 16 110/66 97 04/19/21 07:14 37 C 66 16 118/78 96 04/19/21 06:21 68 04/19/21 05:01 37.0 C 04/19/21 03:00 37.8 C H 89 18 108/61 93
[2021-04-19] MEDS ORDERED: DICYCLOMINE HCL 10 MG CAP PO PRN (18:39)
[2021-04-20] MEDS: metroNIDAZOLE 500 MG/100 ML BAG IV SCH (06:00)
[2021-04-20] MEDS: CIPROFLOXACIN / D5W 400 MG/200 ML BAG IV SCH (08:12)
[2021-04-20 09:07] LABS: Hemoglobin 14.1 g/dL (14.0-18.0); Mean Corpuscular Hemoglobin 31.5 pg (25-34); Mean Corpuscular Hgb Conc 36.2 g/dL (32-36); Mean Corpuscular Volume 87.2 fL (80-100); Platelet Count 214 K/uL (130-400); RDW Coefficient of Variation 12.4 % (11.5-14.5); RDW Standard Deviation 39.5 fL (36.4-46.3); Red Blood Count 4.47 M/uL (4.7-6.1); White Blood Count 12.12 K/uL (4.8-10.8)
[2021-04-20 09:35] LABS: BUN Creatinine Ratio 9.3 (10-20); Calcium 8.5 mg/dl (8.5-10.1); Creatinine Clr Calc Pharmacy 139.9 ml/min; Est GFR (African American) 137.8 ml/min; Est GFR (Non-African American) 118.9 ml/min; Potassium 3.1 mmol/L (3.5-5.1)
[2021-04-20] MEDS ORDERED: POTASSIUM CHLORIDE 10 MEQ TABCR PO STA (10:16)
[2021-04-20] MEDS ORDERED: POTASSIUM CHLORIDE CRTAB 20 MEQ TABCR PO STA (10:16)
--- NOTE | 2021-04-20 12:34 | Discharge Summary ---
Date of Service April 20, 2021 Admission HPI Per Admitting Provider History obtained from patient, family, and records. Medical history significant for narcolepsy. Patient has been at the [employer] this week eating a bunch of stuff. Yesterday around noontime, patient noted abdominal cramping followed by watery diarrhea followed by grossly bloody stool. Multiple bowel movements. No fever, chills, vomiting, chest pain, shortness of breath. No recent antibiotics, no known sick contacts. No prior episodes. No unusual weight loss the last few months. Patient brought to the ER by for evaluation. Medical History as above EGD 2008 was normal. Surgical History : None Family History : DM, heart disease ; no IBD, no colon cancer Personal/Social history : Non-smoker, occasional EtOH intake, metallurgical work Admission Exam Per Admitting Provider GENERAL: Comfortable, pleasant, no respiratory distress SKIN: Normal color, warm HEENT: [place] palpebral conjunctivae, no ptosis, dry buccal mucosa NECK : Supple, no tenderness CHEST : CTA, no tenderness HEART : Bradycardic, no obvious murmurs ABDOMEN: Some distention, minimal hypogastric tenderness EXTREMITIES : No LE swelling/tenderness, no other conspicuous deformities noted NEUROLOGIC : Coherent, no facial asymmetry, no other gross focality Principal Diagnosis Hemorrhagic colitis E. coli Shiga toxin (Diarrhea) Leukocytosis Abnormal Thyroid test ( TSH) Discharge Exam General- No acute distress Head- atraumatic Eyes- PERRL, EOMI, ENT- oropharynx clear Neck- supple, no JVD Lungs- clear to auscultation Heart- regular rhythm; no murmur Abdomen- normal bowel sounds, soft, nontender Extremities- no calf tenderness Neuro- alert, oriented x 3; PERRL, EOMI; no facial palsy; no dysarthria Skin- warm & dry Discharge Data Allergies Allergy/AdvReac Type Severity Reaction Status Date / Time morphine Allergy Mild Hives Verified 04/17/21 07:09 Consultations 04/17/21 05:40 ED Decision to Admit Stat 04/17/21 08:50 Consult Gastroenterology Routine Ordered Studies 04/17/21 03:27 CT abd pelvis IV con only Urgent ABDOMEN AND PELVIS CT WITH IV CONTRAST CT DOSE: 407.52 mGy.cm HISTORY: Diffuse abdominal pain, elevated WBC, fever TECHNIQUE: Multiaxial CT images of the abdomen and pelvis were performed following the use of intravenous contrast. A dose lowering technique was utilized adhering to the principles of ALARA. COMPARISON STUDY: None. FINDINGS: Groundglass densities within the lungs posteriorly favor mild dependent change. No pneumoperitoneum. No pneumatosis. No fractures within the visualized osseous structures. The liver, gallbladder, pancreas, spleen, adrenal glands, and kidneys are unremarkable. No hydronephrosis. No retroperitoneal lymphadenopathy. Normal caliber abdominal aorta. The main portal vein is patent. No evidence for bowel obstruction. Normal appendix. The bladder is decompressed. A few colonic diverticula. No evidence for acute diverticulitis. There is trace fluid within the abdomen and pelvis. [id number] bowel wall thickening involving the majority of the colon most pronounced within the proximal colon. There is associated pericolonic inflammatory change/edema. Findings are consistent with a pancolitis. A few prominent ileocolic lymph nodes which are likely reactive. IMPRESSION: 1. Above findings consistent with a nonspecific pancolitis likely secondary to an infectious or inflammatory process. No perforation or abscess identified. 2. Small amount of fluid within the abdomen and pelvis which is likely reactive. 3. Normal appendix. ACT 112: Negative or not required by law. Electronically signed by: Brooks Christianson M.D. 04/17/2021 8:12 AM Dictated: 04/17/21808Transcribed: 04/17/21808 Hospital Course (1) Hemorrhagic colitis: Mostly infectious colitis from possible shiga toxin producing infectious agent CT abd/pelvis consistent with a nonspecific pancolitis likely secondary to an infectious or inflammatory process. No perforation or abscess identified. Small amount of fluid within the abdomen and pelvis which is likely reactive. Gastro on board recommended continue IVf fluid and IV Flagyl and cipro Stool for C. difficile negative Stool positive for E. coli Shiga toxin No indication for colonoscopy at this point. gastro on board and recommended to avoid dairy products and fruits at this point. He also should avoid green leafy vegetables. meat, chicken, and rice and fish would be a better diet for him for the first few days and he can liberalize as he feels fit as per GI GI recommended to complete the course of the abx, but when i discussed again with GI they recommended supportive therapy and not to discharge on abx Abx increased the risk of developing HUS in Shiga Toxin strains Abx discontinued today Tolerated diet and advanced as tolerated Hemoglobin stable Continue pain control Continue monitor closely Leukocytosis Possible related to colitis WBC trending down 12k Blood culture no growth Currently on IV Cipro and Flagyl Hypokalemia Mostly related to diarrhea K replaced Increase K supplement in your diet Check BMP in 1 week Abnormal TSH Possible related to acute illness Free T4 normal Will need to repeat TSH in 4 weeks Narcolepsy stable on medication Hyperglycemia Hba1c 5.1 Continue monitor DVT prophylaxis with SCDs Re: GI bleed Full code Disposition will discharge home today Patient's requesting updates from providers. Ms. Paola Jeffery, contact #[phone]. Total Time Total Time Spent Total Time Spent (In Minutes): 35 minutes Discharge Plan Discharge Items Patient Disposition: Home - Self-Care Reason For Visit: SEPSIS,LGIB Discharge Diagnosis: Hemorrhagic colitis E. coli Shiga toxin (Diarrhea) Leukocytosis Abnormal Thyroid test ( TSH) Activity: Resume your previous activity Non-emergency contact: Primary Care Provider Call non-emergency contact if: you have any medication questions and your temperature is above 101 Follow-up/Referrals: Ovidio Hou MD [Outside Practitioners] - (Date & Time 04/27/2021 11:00 AM Provider Ovidio Hou MD Department [facility] ) Diet: Other - See Diet Comment Addtl Attending Provider Instructions: 04/27/2021 11:00 AM Provider Ovidio Hou MD Department [facility] Follow up with gastroenterology as needed if symptoms persist Advanced your diet slowly as tolerated (meat, chicken, and rice and fish would be a better diet for the first few days, then advance as tolerated) Increase potassium supplement in your diet Check BMP in 1 week to monitor your electrolytes Your thyroid function was low. Check TSH in 4 weeks to monitor your thyroid function Keep yourself hydrate Pending Studies at Discharge: No Stand-Alone Forms: My [employer], Smoking Cessation Medications and DC Order Prescriptions: New potassium chloride 10 mEq capsule, extended release 10 meq PO DAILY Qty: 7 RF: 0 Continued armodafinil 200 mg tablet 200 mg PO DAILY RF: 0 Discharge Orders: Discharge Order (Routine); Ordered 04/20/21 Ordered By: Brian Childress Admission Data Admit Date/Time: 04/17/21 06:26 Attending Provider: [place] Admit Provider: Naresh Guido Primary Care Provider: PCP,NO Other Providers: Naresh Guido ; Ronal Cluadio ; Paola Grubbs ; Lalita Jordan ; Chey Kaplan ; Taye Eaton ; Apurva Pickett ; Sylvia Norris ; Ganesh Mensah ; Tammy Ervin ; Chana Fierro ; Tiffanie Stewart ; Nell Bartholomew ; Alvarez Snider Other Interventions: Discharge Summary Assessment (RN) Last Done: 04/20/21 11:42
== END 2021-04-20 13:40 | disposition home or self-care (01) ==
LOC: ED 02:46 → 2N 06:26 → INTOOBSV 06:26 → 2N 08:26